=== PATIENT | female | born 1970 | race Caucasian/White ===

== ENCOUNTER → 2018-03-24 | Outpatient (CLI) | payer OTHER ==
[2018-03-24 09:17] LABS: PTH INTACT 90.3 pg/mL (14.0-72.0)
[2018-03-25 08:10] LABS: RHEUMATOID ARTHRITIS FACTOR <10.0 IU/mL (0.0-13.9)
[2018-03-31 18:03] LABS: HLA-B27 ANTIGEN Negative (.)
== END | disposition home or self-care (01) ==
LOC: LAB 07:03
PROVIDERS: Family Medicine
DX: R20.2 Paresthesia of skin (principal); R25.2 Cramp and spasm